=== PATIENT | male | born 1990 | race Caucasian/White ===

== ENCOUNTER 2024-04-19 07:54 | Emergency (ER) | payer MEDICAID ==
[~2024-04-19] VITALS: Ht 180.3 cm; Wt 85.0 kg
[2024-04-19 07:57] VITALS: BP 148/73; PULSE 88; RESP 16; TEMP 98; O2SAT 98
== END 2024-04-19 10:10 | disposition home or self-care (01) ==
LOC: ER 07:55
DX: S92.812A Other fracture of left foot, initial encounter for closed fracture (principal); V00.131A Fall from skateboard, initial encounter; Y93.89 Activity, other specified; Y92.89 Other specified places as the place of occurrence of the external cause; Y99.8 Other external cause status
CPT/HCPCS: 73610; 73630; 99284; L3260